=== PATIENT | female | born 1995 | race African-American/Black ===

== ENCOUNTER 2021-05-22 07:35 | Inpatient (IN) | payer OTHER ==
[2021-05-22] VITALS (32 sets, daily range): BP systolic 98–141; BP diastolic 52–92
[~2021-05-22] VITALS: Ht 160 cm; Wt 70.4 kg
[2021-05-22] MEDS ORDERED: PRENTAB9 PO (07:58)
[2021-05-22] MEDS ORDERED: LACTATED RINGER'S 1000 ML IV STA (08:21)
[2021-05-22] MEDS ORDERED: LR 1,000 ML IV SCH (08:25)
[2021-05-22] MEDS ORDERED: OXYTOCIN INJ 10 UNITS/ML VIAL (J2590) IM PRN (08:25)
[2021-05-22] MEDS ORDERED: OXYTOCIN DRIP 30 UNITS in IV 1 EA IV PRN ×4 (08:25)
[2021-05-22] MEDS ORDERED: TRANEXAMIC ACID INJection 1,000 MG in NS 100 ML IV PRN (08:25)
[2021-05-22] MEDS ORDERED: METHYLERGONOVINE MALEATE 0.2 MG/ML VIAL (J2210) IM PRN (08:25)
[2021-05-22] MEDS ORDERED: LIDOCAINE 1% MDV 20ML VIAL INFIL PRN (08:25)
[2021-05-22] MEDS ORDERED: CARBOPROST TROMETHAMINE 250 MCG/ML AMP IM PRN (08:25)
[2021-05-22 09:22] LABS: HEMATOCRIT 36.5 % (36.0-47.0); HEMOGLOBIN 12.2 g/dl (12.0-15.5); MEAN CORPUSCULAR HEMOGLOBIN 30.6 pg (27.0-33.0); MEAN CORPUSCULAR HGB CONC 33.4 g/dl (32.0-36.5); MEAN CORPUSCULAR VOLUME 91.5 fl (80.0-96.0); PLATELET COUNT, AUTOMATED 238 10^3/uL (150-450); RED BLOOD COUNT 3.99 10^6/uL (4.00-5.40); WHITE BLOOD COUNT 5.1 10^3/uL (4.0-10.0)
[2021-05-22] MEDS ORDERED: FENTANYL 2MCG/ML ROPIVACAINE 0.2% IN 0.9% NACL 100ML IVBAG As Ordered ONE (10:18)
[2021-05-22] MEDS ORDERED: REFRIGERATOR IV KEYS XX PRN (10:55)
[2021-05-22] MEDS ORDERED: EPIDURAL COMMENT XX SCH (10:55)
[2021-05-22] MEDS ORDERED: ONDANSETRON 4MG/2ML VIAL IV PRN (10:55)
[2021-05-22] MEDS ORDERED: NALOXONE INJ 0.4MG/1ML VIAL (J2310 PER 1MG) IV PRN (10:55)
[2021-05-22] MEDS ORDERED: EPIDURAL/PCA KEYS XX PRN (10:55)
[2021-05-22] MEDS ORDERED: diphenhydrAMINE 50MG/ML VIAL (J1200) IV PRN (10:55)
[2021-05-22] MEDS ORDERED: ePHEDrine SULFATE 25 MG/5 ML(5MG/ML) SYRINGE IV PRN (10:55)
[2021-05-22] MEDS ORDERED: FENTANYL/ROPIVACAINE/NACL BAG 100 ML EPIDURAL SCH (10:55)
[2021-05-22] MEDS ORDERED: LACTATED RINGER'S 1000 ML IV PRN (10:55)
[2021-05-22] MEDS ORDERED: OXYTOCIN DRIP 30 UNITS in IV 1 EA IV SCH (14:20)
[2021-05-22] MEDS ORDERED: ACETAMINOPHEN TAB 650MG DOSE (2X325MG) PO PRN (15:50)
[2021-05-22] MEDS ORDERED: DIBUCAINE 1% OINTMENT 30GM TOP PRN (15:50)
[2021-05-22] MEDS ORDERED: IBUPROFEN 600MG TAB PO PRN (15:50)
[2021-05-22] MEDS ORDERED: METHYLERGONOVINE MALEATE 0.2 MG TAB PO PRN (15:50)
[2021-05-22 15:53] LABS: CORD GAS ABE A -4.8; CORD GAS ABE V -6.6; CORD GAS HCO3 A 21.1 MEQ/L; CORD GAS HCO3 V 20.9 MEQ/L; CORD GAS O2 SAT A 62.9 %; CORD GAS O2 SAT V 32.1 %; CORD GAS PCO2 V 49.1 mmHg; CORD GAS PH A 7.318 UNITS; CORD GAS PH V 7.246 UNITS; CORD GAS PO2 A 27.4 mmHg; CORD GAS PO2 V 18.1 mmHg; CORD GAS SBC A 19.7 MEQ/L; CORD GAS SBC V 17.8 MEQ/L; CORD GAS TCO2 A 22.3 MEQ/L; CORD GAS TCO2 V 22.4 MEQ/L
[2021-05-22] MEDS: IBUPROFEN 800 MG TAB PO PRN (17:59)
[2021-05-22] MEDS: ACETAMINOPHEN 500 MG TAB PO PRN (18:46)
[2021-05-22] MEDS: DOCUSATE SODIUM 100MG CAPSULE PO SCH (20:59)
[2021-05-23 06:00] VITALS: BP 115/56
[2021-05-23] MEDS: ACETAMINOPHEN 500 MG TAB PO PRN ×2 (07:53→16:53)
[2021-05-23] MEDS: PRENATAL VITAMINS CHEWABLE TABLET PO SCH (08:52)
[2021-05-23] MEDS: DOCUSATE SODIUM 100MG CAPSULE PO SCH ×2 (08:52→20:04)
[2021-05-23 18:08] VITALS: BP 116/64
[2021-05-23] MEDS: IBUPROFEN 800 MG TAB PO PRN (20:04)
[2021-05-24] MEDS: ACETAMINOPHEN 500 MG TAB PO PRN (06:15)
[2021-05-24 06:17] VITALS: BP 111/66
[2021-05-24] MEDS: PRENATAL VITAMINS CHEWABLE TABLET PO SCH (07:35)
[2021-05-24] MEDS: DOCUSATE SODIUM 100MG CAPSULE PO SCH (07:35)
[2021-05-24] MEDS ORDERED: IBUP-1022 PO (08:58)
[2021-05-24] MEDS ORDERED: COLA100C5 PO (08:58)
== END 2021-05-24 11:27 | disposition home or self-care (01) | DRG 807 ==
LOC: M LDO 07:35 → M LDI 08:21 → M OBS 17:35
PROVIDERS: ADMIT Advanced Practice Midwife; ATTEND Advanced Practice Midwife
PROC: 10E0XZZ Delivery of Products of Conception, External Approach (ICD-10-PCS; principal; 2021-05-22)
PROC: 10907ZC Drainage of Amniotic Fluid, Therapeutic from Products of Conception, Via Natural or Artificial Opening (ICD-10-PCS; 2021-05-22)
DX: O66.0 Obstructed labor due to shoulder dystocia (principal); Z37.0 Single live birth; Z3A.38 38 weeks gestation of pregnancy